=== PATIENT | female | born 1980 | race Two or more races ===

== ENCOUNTER → 2016-12-16 | Outpatient (CLI) | payer SELFPAY ==
[2015-10-17 17:28] VITALS: BP 115/76
[~2016-12-16] MED LIST: ACET-704 PO; IBUP-1060 PO; OXYC-323 PO; PNV1TABL25 PO
--- NOTE | 2016-12-16 13:29 | KCIC ---
Clinical Indication: Discrepancy in size and dates. Technique: Study is dated December 16, 2016. No comparison study is available. Transabdominal imaging was performed. Findings: There is a single intrauterine gestation in breech presentation. The placenta is posterior in location without evidence of placental previa. Cervix is long and closed. Amniotic fluid is subjectively within normal limits. Biometrical data is as follows: BPD = 3.50 cm, with a corresponding gestational age of 16 weeks 5 days. HC = 13.51 cm, with a corresponding gestational age of 17 weeks 0 days. AC = 10.88 cm, with a corresponding gestational age of 16 weeks 5 days. FL = 2.26 cm, with a corresponding gestational age of 16 weeks 5 days. Ratio of head circumference to abdominal circumference is 1.24. Cephalic index is 73 percent. Normal range is 70% to 86%. Overall, the estimated sonographic gestational age is 16 weeks 6 days for an estimated date of delivery of May 27, 2017, concordant with SHELIA by LMP of May 26, 2017. Estimated weight is 169 g. survey was performed. A four chamber heart is identified with positive cardiac activity. The estimated heart rate is 171 beats per minute. There is a three-vessel cord with cord insertion visualized. stomach and urinary bladder are identified. Both kidneys are seen. Limited intracranial evaluation is within normal limits. IMPRESSION: Single intrauterine gestation with estimated sonographic gestational age of 16 weeks 6 days. Electronically signed by: Joe Love MD (12/16/2016 1:26 PM) [id number]
== END | disposition home or self-care (01) ==
LOC: KCIC US 12:21
PROVIDERS: ATTEND Obstetrics & Gynecology
DX: O26.842 Uterine size-date discrepancy, second trimester (principal); Z3A.16 16 weeks gestation of pregnancy
CPT/HCPCS: 76805